=== PATIENT | female | born 1940 | race African-American/Black ===

== ENCOUNTER 2023-05-25 13:43 | Emergency (ER) | payer MEDICARE ==
[2023-05-25] MEDS ORDERED: HYDROcodone/Acetaminophen 5/325 mg Tablet ONE (15:22)
[2023-05-25] MEDS ORDERED: Cyclobenzaprine 10 MG TAB ONE (15:22)
== END 2023-05-25 16:12 | disposition home or self-care (01) ==
LOC: CSHERS 13:43
DX: S39.012A Strain of muscle, fascia and tendon of lower back, initial encounter (principal)
CPT/HCPCS: 99283